=== PATIENT | female | born 1990 | race Caucasian/White ===

== ENCOUNTER 2021-05-17 07:49 | Outpatient (RCR) | payer OTHER, SELFPAY | END 2021-08-15 23:59 | disposition home or self-care (01) | LOC: CHSAUDIO 07:49 | DX: H90.3 Sensorineural hearing loss, bilateral (principal) | CPT/HCPCS: 92557; 92567 ==

== ENCOUNTER 2023-03-18 10:48 | Outpatient (CLI) | payer OTHER, SELFPAY | END 2023-03-18 10:49 | disposition home or self-care (01) | LOC: CHSAUDIO 10:50 | DX: H90.3 Sensorineural hearing loss, bilateral (principal) | CPT/HCPCS: 92557; 92567 ==

== ENCOUNTER 2023-04-09 11:01 | Outpatient (RCR) | payer OTHER, SELFPAY | END 2023-04-09 23:59 | disposition home or self-care (01) | LOC: ANHAUDIO 11:01 | DX: Z46.1 Encounter for fitting and adjustment of hearing aid (principal) | CPT/HCPCS: V5261 ==